=== PATIENT | female | born 2005 | race Caucasian/White ===

== ENCOUNTER 2024-09-24 02:37 | Emergency (ER) | payer OTHER, SELFPAY ==
[2024-09-24 02:38] VITALS: BP 164/106; PULSE 124; RESP 20; TEMP 36.4; O2SAT 99; BMI 37.8
[2024-09-24] MEDS: IPRAT-ALBUT 0.5-2.5 MG/3 ML NEB 1 NEB IH (03:08)
[2024-09-24] MEDS: predniSONE 20 MG TABLET 40 MG PO (03:08)
--- NOTE | 2024-09-24 03:11 | ED_ITS ---
HPI - General Adult General Chief complaint: Shortness of Breath/Dyspnea Stated complaint: shortness of breath/cough/sneezing Time Seen by Provider: 09/24/24 02:54 Source: patient Mode of arrival: ambulatory Limitations: no limitations History of Present Illness HPI narrative: 19-year-old female with 24 hours of worsening shortness of breath. She has a he has history of what sounds like moderate persistent asthma based on her history. She had a lapse in insurance earlier this year and has been without her Advair for a few months. She started feeling ill yesterday morning, has been using her albuterol with no improvement in symptoms, felt more short of breath overnight, feels like she is wheezing. No fever. No history of DVT or PE. To go home COVID test and it was negative. Does not use a spacer with her albuterol. Does not have access to prednisone or an asthma action plan. Tried calling her primary care provider for a refill of her Advair but that request is still pending. She typically has a nebulizer machine with her at her dorm but unfortunately to get home for spring and left it there, not currently having access. She does admit that she is on her last albuterol inhaler as we ll. She states that she has never been hospitalized for her asthma since she was a baby or toddler and has never had to be intubated. She has done prednisone burst in the past and is familiar with the medication. Pulses under 100 by the time of my exam, she does feel like she was probably anxious in triage. She does not smoke, no recreational drug use. Denies other chronic medical problems besides the asthma. No recent surgeries or pertinent travel. ROS is notable for the dyspnea and some mild nasal congestion only, otherwise denies times 12 systems. Related Data Home Medications ?Medication ?Instructions ?Recorded ?Confirmed albuterol 90 mcg/actuation aerosol mcg inhalation 09/24/24 inhaler Previous Rx's ?Medication ?Instructions ?Recorded albuterol sulfate 90 mcg/actuation 2 inh inhalation Q4-6H PRN #1 eric 09/24/24 breath activated powder inhaler fluticasone 250 mcg-salmeterol 50 1 inh inhalation BID #60 eric 09/24/24 mcg/dose blistr powdr for inhalation inhalational spacing device #1 eric 09/24/24 (BreatheRite MDI Spacer) prednisone 20 mg tablet 20 mg PO BID #10 tabs 09/24/24 Allergies Allergy/AdvReac Type Severity Reaction Status Date / Time No Known Drug Allergies Allergy Verified 09/24/24 02:45 [facility] Social History Smoking Status: Never smoker Non-prescribed substance use: denies use Exam Const: Vital Signs, click to edit/add: Vital Signs - 24 hr 09/24/24 02:38 09/24/24 03:12 Temperature 97.6 F Pulse Rate [Left P ulse Oximeter] 124 H 120 H Respiratory Rate 20 24 Blood Pressure [Ri ght Upper Arm] 164/106 H Pulse Oximetry 99 99 Oxygen Delivery Me thod Room Air Room Air Documenting provider has reviewed patient's vital signs: yes Other: Mildly anxious but redirectable. Pulse is under 100 at the time of my auscultation. Good historian. HENMT: Common normals: normocephalic, moist oral mucous membranes and oropharynx normal Head and scalp: normocephalic Other: Mild clear mucus rhinorrhea. Eye: Common normals: conjunctivae normal General eye: normal appearance of both eyes Conjunctiva: conjunctiva(e) normal Neck & C-Spine: Common normals: full ROM and no lymphadenopathy Resp: Common normals: normal respiratory effort Other: Mild prolongation of expiration compared inspiration, 2-1 with mild expiratory wheeze. Some mild coarse upper airway sounds that do clear with cough. No crackles. Cardio: Common normals: regular rate, regular rhythm, S1 normal heart sound, S2 normal heart sound and no murmurs Rate: regular rate Rhythm: regular rhythm Heart sounds: S1 normal and S2 normal Extremity: Common normals: normal to inspection and normal capillary refill Psych: Appearance: grossly normal Attention/concentration: attention grossly intact Memory/cognition: memory grossly intact Insight: fair Judgement: fair Skin: Common normals: no rashes or lesions noted General skin exam: no rashes or lesions noted Course Course ED Course: 19-year-old female with a history of moderate persistent asthma presenting with upper respiratory infection symptoms with concerns for asthma exacerbation. Currently off of her maintenance inhaler and low on albuterol supplies. Exam not suggestive of pneumonia, no chest pain or localizing symptoms to suggest pulmonary embolism. No signs of acute cardiac process. Will administer DuoNeb, re-evaluate and 40 mg of prednisone. If this is helpful, will plan to restart her Advair for a month and then refer to her primary care provider for step-down therapy. Albuterol refill with spacer and 5 days of 20 mg b.i.d. prednisone. Reevaluation(s) Time of Reevaluation #1: 03:25 Reevaluation #1: Re-evaluation after nebulizer treatment. Patient feeling markedly better. We spent some time discussing the prednisone, maintenance asthma inhalers, reasons for step-down therapy to avoid long-term use of long-acting bronchodilators. I a sitting it might be better if we just kept her on the Advair for a couple of months until the end of the school year as I worry about her trying to get in with her primary care doctor back home during finals time and potentially just going off of medication and risking another flare. Patient will make an appointment for when she is back home late spring/early summer to talk about step-down therapy. Refills sent for all of the things that she would need in the interim. Alarm symptoms reviewed that would warrant return to the ED, written instructions provided. She verbalizes understanding and agreement. Vital Signs Vital signs: Initial Vital Signs Temperature 97.6 F 09/24/24 02:38 Temperature Source Temporal Artery Scan 09/24/24 02:38 Pulse Rate 124 H 09/24/24 02:38 Pulse Rhythm Regular 09/24/24 02:38 Respiratory Rate 20 09/24/24 02:38 Blood Pressure 164/106 H 09/24/24 02:38 Blood Pressure Mean 125 H 09/24/24 02:38 Blood Pressure Position Sitting 09/24/24 02:38 Pulse Oximetry 99 09/24/24 02:38 Oxygen Delivery Method Room Air 09/24/24 02:38 Vital Signs Temperature 97.6 F 09/24/24 02:38 Pulse Rate 124 H 09/24/24 02:38 Respiratory Rate 20 09/24/24 02:38 Blood Pressure 164/106 H 09/24/24 02:38 Pulse Oximetry 99 09/24/24 02:38 Oxygen Delivery Method Room Air 09/24/24 02:38 Temperature 97.6 F 09/24/24 02:38 Pulse Rate 120 H 09/24/24 03:12 Respiratory Rate 24 09/24/24 03:12 Blood Pressure 164/106 H 09/24/24 02:38 Pulse Oximetry 99 09/24/24 03:12 Oxygen Delivery Method Room Air 09/24/24 03:12 Medications Administered Medications: Discontinued Medications Generic Name Dose Route Start Last Admin Trade Name Amrita PRN Reason Stop Dose Admin Albuterol/Ipratropium 1 neb 09/24/24 03:03 09/24/24 03:08 Iprat-Albut 0.5-2.5 Mg/3 Ml Neb IH 09/24/24 03:04 1 neb ONCE ONE Administration Prednisone 40 mg 09/24/24 03:03 09/24/24 03:08 Prednisone 20 Mg Tablet PO 09/24/24 03:04 40 mg ONCE ONE Administration Discharge Plan Discharge Clinical Impression: Asthma with acute exacerbation Patient Disposition: Home, Self-Care Condition: Improved Instructions: Reactive Airways Disease (ED), How to Use a Metered-Dose Inhaler and a Spacer (DC) Additional Instructions: I agree with your assessment that you have a flare-up of your asthma related to a viral illness. There does not seem to be any evidence of pneumonia, low oxygen levels or other dangerous other conditions today. Unfortunately, your more likely to have recurrent symptoms unless we restart your maintenance inhaler also. I would like for you to restart Advair 1 puff 2 times a day for the next month. After that, I would like for you to follow-up with her primary care provider to discuss step-down therapy to an inhaled steroid or just an inhaled steroid/albuterol rescue inhaler option. I do not know your history well enough to know if you can be weaned off of the long-acting bronchodilator which are not as safe as the other options for long-term use. Short term, I would like for you to start prednisone 20 mg twice daily. You were given a 40 mg dose here in the emergency department, this will count as your morning dose. I would like for you to have another dose later this afternoon/early evening. Try not to take it within 4 hours of bedtime as it may worsen insomnia. He will continue on that medication twice daily for 5 days. If you are able to get your nebulizer back from home, that would be ideal for you to have access to again. Otherwise, I have given new prescriptions for albuterol as needed and lots of refills. Have also sent a prescription for a spacer as we discussed this can make the albuterol much more effective. You should return to the emergency department if you have severe shortness of breath, high fevers or other alarming symptoms. Activity Level: Activity as Tolerated Discharge Diet: Regular Prescriptions: New prednisone 20 mg tablet 20 mg PO BID Qty: 10 0RF fluticasone propion-salmeterol 250-50 mcg/dose blister with device 1 inh inhalation BID Qty: 60 3RF albuterol sulfate 90 mcg/actuation aerosol powdr breath activated 2 inh inhalation Q4-6H PRNQty: 1 8RF Rx Instructions: As needed as a rescue inhaler for shortness of breath. (DME) BreatheRite MDI Spacer Spacer See Rx Instructions .Route Qty: 1 1RF Rx Instructions: As directed No Action albuterol 90 mcg/actuation aerosol inhalation Stand Alone Forms: [facility] Info Instructions
[2024-09-24 03:12] VITALS: PULSE 120; RESP 24; O2SAT 99
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
--- OUTSIDE RECORDS SUMMARY | 2024-09-24 03:41 | XMS_ITS | Encounter Summary ---
Demographics Address [address] [place] [address] Mobile Phone Home Phone Email Address Email Address Preferred Language ENG Marital Status Single Orthodox Affiliation Unknown Race or Ethnic Group Unknown Author Organization [facility] Address [address] [place] [address] Support Name Relationship Address Phone Etta Baeza Emergency Contact [address] [place] [address] Patient Declined 12/06/20 Emergency Contact 10/08 10/20 Unavailable Care Team Providers Care Mailing Machine Operator Name Role Phone Lili Strong DO Primary Care Provider [phone] Encounter Details Date Type Department Care Team (Late st Contact Info) Description 02/01/2010 Scanned History External to Transferred Record, Provider [facility] Social History Tobacco Use Types Packs/Day Years Used Date Smoking Tobacco: Never Assessed Comments Unknown Sex and Gender Information Value Date Recorded Sex Assigned at Not on file Legal Sex Female 6:40 AM CDT Gender Identity Not on file Sexual Orientation Not on file documented as of this encounter Progress Notes * Transferred Record, Provider - 02/01/2010 12:00 AM CDT documented in this encounter Plan of Treatment Not on file documented as of this encounter Visit Diagnoses Not on filedocumented in this encounter Additional Health Concerns Infection Onset Date Last Indicated Resolved Time R/O COVID19 12/06/2020 12/06/2020 12/07/2020 7:58 AM CDT documented as of this encounter Care Teams Mailing Machine Operator Relationship Specialty Start Date End Date Lili Strong DO [address] [place] [address] PCP - General Family Practice 02/12/24 documented as of this encounter
--- OUTSIDE RECORDS SUMMARY | 2024-09-24 03:42 | XMS_ITS | Encounter Summary ---
Demographics Address [address] [place] [address] Mobile Phone Home Phone Email Address Email Address Preferred Language ENG Marital Status Single Congregational Affiliation Unknown Race or Ethnic Group Unknown Author Organization [facility] Address [address] [place] [address] Support Name Relationship Address Phone Etta Baeza Emergency Contact [address] [place] [address] Patient Declined 12/06/20 Emergency Contact 10/08 10/20 Unavailable Care Team Providers Care Bpm Analyst Name Role Phone Lili Strong DO Primary Care Provider [phone] Encounter Details Date Type Department Care Team (Late st Contact Info) Description 01/25/2012 [facility] [address] [place] [address] Neto Ritter MD [address] [place] [address] ANAPHYLAXIS ACTION PLAN Social History Tobacco Use Types Packs/Day Years Used Date Smoking Tobacco: Never Smokeless Tobacco: Never Alcohol Use Standard Drinks/Week Comments Not Asked 0 (1 standard drink = 0.6 oz pur e alcohol) Comments Unknown Sex and Gender Information Value Date Recorded Sex Assigned at Not on file Legal Sex Female 6:40 AM CDT Gender Identity Not on file Sexual Orientation Not on file documented as of this encounter Progress Notes * Neto Ritter MD - 01/25/2012 12:00 AM CDT documented in this encounter Plan of Treatment Not on file documented as of this encounter Visit Diagnoses Not on filedocumented in this encounter Additional Health Concerns Infection Onset Date Last Indicated Resolved Time R/O COVID19 12/06/2020 12/06/2020 12/07/2020 7:58 AM CDT documented as of this encounter Care Teams Bpm Analyst Relationship Specialty Start Date End Date Lili Strong DO [address] [place] [address] PCP - General Family Practice 02/12/24 documented as of this encounter
--- OUTSIDE RECORDS SUMMARY | 2024-09-24 03:42 | XMS_ITS | Encounter Summary ---
Demographics Address [address] [place] [address] Mobile Phone Home Phone Email Address Email Address Preferred Language ENG Marital Status Single Tenriism Affiliation Unknown Race or Ethnic Group Unknown Author Organization [facility] Address [address] [place] [address] Support Name Relationship Address Phone Etta Baeza Emergency Contact [address] [place] [address] Patient Declined 12/06/20 Emergency Contact 10/08 10/20 Unavailable Care Team Providers Care Computer Operations Supervisor Name Role Phone Lili Strong DO Primary Care Provider [phone] Encounter Details Date Type Department Care Team (Latest Contact Info) Description 12/13/2011 Correspondence [facility] [address] [place] [address] Juana Gruber MD [facility] RECOMMENDATIONS Social History Tobacco Use Types Packs/Day Years [...] as of this encounter Progress Notes * Juana Gruber MD - 12/13/2011 12:00 AM CDT documented in this encounter Plan of Treatment Not on file documented as of this encounter Visit Diagnoses Not on filedocumented in this encounter Additional Health Concerns Infection Onset Date Last Indicated Resolved Time R/O COVID19 12/06/2020 12/06/2020 12/07/2020 7:58 AM CDT documented as of this encounter Care Teams Computer Operations Supervisor Relationship Specialty Start Date End Date Lili Strong DO [address] [place] [address] PCP - General Family Practice 02/12/24 documented as of this encounter
== END 2024-09-24 03:40 | disposition home or self-care (01) ==
LOC: ED 03:39
PROVIDERS: Emergency Provider Family Medicine
DX: J45.901 Unspecified asthma with (acute) exacerbation (principal)
CPT/HCPCS: 99283; 99284; J7512